=== PATIENT | female | born 1970 | race African-American/Black ===

== ENCOUNTER 2019-12-02 01:49 | Emergency (ER) | payer MEDICAID ==
[~2019-12-02] VITALS: Ht 165.1 cm; Wt 78.5 kg
[2019-12-02 01:56] VITALS: BP 117/65
--- NOTE | 2019-12-02 01:59 | NUR ---
PT TAKEN TO BED 4
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
[2019-12-02 02:41] VITALS: BP 117/65
--- NOTE | 2019-12-02 03:21 | NUR ---
Dr. Small examining patient.
[2019-12-02] MEDS ORDERED: traMADol 50 MG TAB PO STA (03:28)
[2019-12-02] MEDS ORDERED: ACETAMINOPHEN 325 MG TAB PO STA (03:41)
--- NOTE | 2019-12-02 03:54 | NUR ---
pt refusing to leave facility. states "get security then to get me out, i'm not leaving" security called and at bedside.
--- NOTE | 2019-12-02 03:58 | NUR ---
PT REFUSED TEACHING, DISCHARGE INSTRUCTIONS, AND RX PRESCRIPTION. CHARGE NURSE MADE AWARE.
--- NOTE | 2019-12-02 03:58 | NUR ---
security escorting patient off facility.
== END 2019-12-02 03:58 | disposition home or self-care (01) ==
LOC: MED 01:49
DX: M25.511 Pain in right shoulder (principal); K27.9 Peptic ulcer, site unspecified, unspecified as acute or chronic, without hemorrhage or perforation; Z88.6 Allergy status to analgesic agent
CPT/HCPCS: 99282